=== PATIENT | male | born 1985 | race Asian ===

== ENCOUNTER 2019-06-20 14:03 | Emergency (ER) | payer BC ==
--- NOTE | 2019-06-20 14:45 | EDM.PDOC ---
ED HPI GENERAL MEDICAL PROBLEM - General Chief Complaint: Back Pain or Injury Stated Complaint: BACK PAIN Time Seen by Provider: 06/20/19 14:26 Source of Information: Reports: Patient History Limitations: Reports: No Limitations - History of Present Illness INITIAL COMMENTS - FREE TEXT/NARRATIVE: Patient is a 34-year-old male who presents with a two-week history of right sided mid back pain. He states that he first noticed it about 2 weeks ago. There was no known injury, however patient does lift heavy objects frequently at work. He states that occasionally does spasm. He has had no urinary complaints. He denies any fever or chills. He has no chronic health problems and takes no daily medications. Right Lower Back Pain Score (Numeric/FACES): 8 - Related Data Allergies Allergy/AdvReac Type Severity Reaction Status Date / Time No Known Allergies Allergy Verified 06/20/19 14:26 Home Meds: Home Meds Cyclobenzaprine [Flexeril] 5 mg PO Q8H PRN #10 tab 06/20/19 [Rx] Naproxen [Naprosyn] 500 mg PO Q12HR PRN #20 tab 06/20/19 [Rx] Past Medical History - Past Health History Medical/Surgical History: Denies Medical/Surgical History Social & Family History - Family History Family Medical History: Noncontributory - Tobacco Use Smoking Status *Q: Current Every Day Smoker Years of Tobacco use: 12 Packs/Tins Daily: 0.2 - Caffeine Use Caffeine Use: Reports: Energy Drinks - Recreational Drug Use Recreational Drug Use: No ED ROS GENERAL - Review of Systems Review Of Systems: Comprehensive ROS is negative, except as noted in HPI. ED EXAM,LOWER BACK PAIN/INJURY - Physical Exam Exam: See Below Exam Limited By: No Limitations General Appearance: Alert, WD/WN, No Apparent Distress Respiratory/Chest: No Respiratory Distress, Lungs Clear, Normal Breath Sounds, No Accessory Muscle Use, Chest Non-Tender Cardiovascular: Normal Peripheral Pulses, Regular Rate, Rhythm, No Edema, No Gallop, No JVD, No Murmur, No Rub Rectal (Males) Exam: Prostate Nodule Back Exam: Normal Inspection, Paraspinal Tenderness (right midlateral back. Tender to palpation.). No: Vertebral Tenderness Neurological: Alert, Normal Mood/Affect, Normal Dorsiflexion, CN II-XII Intact, Normal Plantar Flexion, Normal Gait, Normal Reflexes, No Motor/Sensory Deficits , Oriented x 3 Psychiatric: Normal Affect, Normal Mood Skin Exam: Warm, Dry, Intact, Normal Color, No Rash Course - Vital Signs Last Recorded V/S: Last Vital Signs Temp 96.7 F L 06/20/19 14:24 Pulse 91 06/20/19 14:24 Resp 18 06/20/19 14:24 BP 136/84 06/20/19 14:24 Pulse Ox 94 L 06/20/19 14:24 - Orders/Labs/Meds Labs: Laboratory Tests 06/20/19 06/20/19 06/20/19 Range/Units 14:50 14:50 15:04 WBC 6.25 (4.23-9.07) K/mm3 RBC 4.94 (4.63-6.08) M/mm3 Hgb 14.1 (13.7-17.5) gm/dl Hct 43.0 (40.1-51.0) % MCV 87.0 (79.0-92.2) fl MCH 28.5 (25.7-32.2) pg MCHC 32.8 (32.2-35.5) g/dl RDW Std Deviation 42.2 (35.1-43.9) fL Plt Count 262 (163-337) K/mm3 MPV 11.3 (9.4-12.3) fl Neut % (Auto) 47.1 (34.0-67.9) % Lymph % (Auto) 37.8 (21.8-53.1) % [place] % (Auto) 9.6 (5.3-12.2) % Eos % (Auto) 4.6 (0.8-7.0) Baso % (Auto) 0.6 (0.1-1.2) % Neut # (Auto) 2.94 (1.78-5.38) K/mm3 Lymph # (Auto) 2.36 (1.32-3.57) K/mm3 [place] # (Auto) 0.60 (0.30-0.82) K/mm3 Eos # (Auto) 0.29 (0.04-0.54) K/mm3 Baso # (Auto) 0.04 (0.01-0.08) K/mm3 Sodium 144 (136-145) mEq/L Potassium 4.3 (3.5-5.1) mEq/L Chloride 108 H (98-107) mEq/L Carbon Dioxide 26 (21-32) mEq/L Anion Gap 14.3 (5-15) BUN 20 H (7-18) mg/dL Creatinine 0.9 (0.7-1.3) mg/dL Est Cr Clr Drug Dosing 97.75 mL/min Estimated GFR (MDRD) > 60 (>60) mL/min BUN/Creatinine Ratio 22.2 H (14-18) Glucose 105 (74-106) mg/dL Calcium 8.6 (8.5-10.1) mg/dL Total Bilirubin 0.2 (0.2-1.0) mg/dL AST 10 L (15-37) U/L ALT 47 (16-63) U/L Alkaline Phosphatase 134 H (46-116) U/L Total Protein 6.7 (6.4-8.2) g/dl Albumin 3.6 (3.4-5.0) g/dl Globulin 3.1 gm/dL Albumin/Globulin Ratio 1.2 (1-2) Urine Color Yellow (Yellow) Urine Appearance Clear (Clear) Urine pH 6.0 (5.0-8.0) Ur Specific [place] > or = 1.030 (1.005-1.030) Urine Protein Negative (Negative) Urine Glucose (UA) Negative (Negative) Urine Ketones Negative (Negative) Urine Occult Blood Negative (Negative) Urine Nitrite Negative (Negative) Urine Bilirubin Negative (Negative) Urine Urobilinogen 0.2 (0.2-1.0) Ur Leukocyte Esterase Negative (Negative) Urine RBC Not seen (0-5) /hpf Urine WBC 0-5 (0-5) /hpf Ur Squamous Epith Cells 0-5 (0-5) /hpf Urine Bacteria Not seen (FEW) /hpf Urine Mucus Not seen (FEW) /hpf - Re-Assessments/Exams Free Text/Narrative Re-Assessment/Exam: 06/20/19 15:46 Hematology and urinalysis were both unremarkable. Spinal x-ray was negative for any acute changes. Discussed with patient that he is likely suffering from muscle spasms. I will give him a dose of Toradol IM in the emergency department. He drove here so I will not give Flexeril at this time. I will send a prescription for Flexeril and Naprosyn to [place] [facility]. Also recommend that he avoid heavy lifting for the next week. He will be provided with a note off from work. Discharge instructions as documented. Departure - Departure Time of Disposition: 15:48 Disposition: Home, Self-Care 01 Condition: Good Clinical Impression: Back pain Qualifiers: Back pain location: low back pain Chronicity: acute Back pain laterality: right Sciatica presence: without sciatica Qualified Code(s): M54.5 - Low back pain - Discharge Information *PRESCRIPTION DRUG MONITORING PROGRAM REVIEWED*: No *COPY OF PRESCRIPTION DRUG MONITORING REPORT IN PATIENT JACKELIN: No Prescriptions: Naproxen [Naprosyn] 500 mg PO Q12HR PRN #20 tab PRN Reason: Pain Cyclobenzaprine [Flexeril] 5 mg PO Q8H PRN #10 tab PRN Reason: Muscle Spasm Instructions: Acute Back Pain, Adult Referrals: PCP,None [Primary Care Provider] - Forms: ED Department Discharge, ED Return to Work/School Form Additional Instructions: You were seen in the emergency department today for a 2-week history of pain and spasms in the right side of your back. Work-up included blood work, urinalysis, and an x-ray of your back. These were all found to be normal. As we discussed, it is likely that you are suffering from a muscle strain. While in the ER you received a dose of Toradol which is an anti-inflammatory. A prescription for Naprosyn and Flexeril has been sent to [place] [facility]. Take these medications as prescribed, however recommend that you do not take a dose of Naprosyn until at least 10:00 this evening. Use caution after taking the Flexeril as it can be sedating. Recommend that you do not drive after taking this. A note has been provided for light duty for you at work for the next week. If your pain fails to improve after this treatment, I would recommend that you follow-up in the clinic with your primary care provider for further testing and treatment. Return to the ER as needed Sepsis Event Note - Evaluation Sepsis Screening Result: No Definite Risk - Focused Exam Vital Signs: Vital Signs Temp Pulse Resp BP Pulse Ox 06/20/19 14:24 96.7 F L 91 18 136/84 94 L Date Exam was Performed: 06/20/19 Time Exam was Performed: 15:50
--- NOTE | 2019-06-20 14:59 | CR ---
Lumbar spine: AP, lateral and coned-down lateral views centered to the lumbosacral junction were obtained. Comparison: No previous lumbar spine study. Vertebral body heights and disc spaces are maintained. Pedicles are intact. Visualized transverse and spinous processes are intact. Sacroiliac joints appear within normal limits. No fracture or subluxation is seen. Impression: 1. No abnormality is appreciated on 3 view lumbar spine exam. Diagnostic code #1 This report was dictated in MDT
[2019-06-20] MEDS ORDERED: Ketorolac 60 MG/2 ML SDV IM ONE (15:51)
== END 2019-06-20 16:10 | disposition home or self-care (01) ==
LOC: JD.ED 14:03
DX: M54.5 Low back pain (principal); M54.6 Pain in thoracic spine; F17.210 Nicotine dependence, cigarettes, uncomplicated
CPT/HCPCS: 36415; 72100; 80053; 81001; 85025; 96372; 99283; J1885